=== PATIENT | female | born 1990 | race Caucasian/White ===

== ENCOUNTER → 2017-06-16 15:04 | Outpatient (CLI) | payer MEDICAID, SELFPAY ==
--- NOTE | 2017-06-16 15:08 | US_ITS ---
US transvaginal HISTORY: Bilateral pelvic pain left greater than right ITS.REASON: pelvic pain ORDERING PHYSICIAN: Cruz Vazquez MD PATIENT AGE: 26 years COMPARISON: 02/13/2015 FINDINGS: The uterus measures 8.5 x 4.3 x 5 cm. Along the lower aspect of the intrauterine segment there is a area measuring approximately 2 x 1.3 cm which has a multicystic appearance. This may be related to underlying dilated vessels. Follow-up with duplex sonography may confirm. Endometrial thickness is 8 mm. No obvious fibroids. The left ovary is 3 x 2 cm and contains at least 3 small cysts the largest at 1.4 x 0.8 cm. The right ovary has an unremarkable appearance at 3 x 1.6 cm. No cul-de-sac fluid. IMPRESSION: Small left ovarian cysts measuring up to 1.4 cm Cystic area along the lower uterine segment anteriorly possibly related to prominent periuterine veins. Consider 6-8 week follow-up to confirm stability. At that time duplex sonography can be performed of this area
== END ==
PROVIDERS: Family Provider Pediatrics; Visit Provider Obstetrics & Gynecology
DX: R10.2 Pelvic and perineal pain (principal)
CPT/HCPCS: 76830